=== PATIENT | male | born 1950 | race Hispanic/Latino ===

== ENCOUNTER → 2021-12-08 | Outpatient (CLI) | payer MEDICARE ==
[~2021-12-08] MED LIST: GADOTERATE MEGLUMINE 10 MMOL/20 ML VIAL IV ONE
== END | disposition home or self-care (01) ==
LOC: RAH 08:56
PROVIDERS: ATTEND Internal Medicine Gastroenterology
DX: R93.2 Abnormal findings on diagnostic imaging of liver and biliary tract (principal); B18.2 Chronic viral hepatitis C; R77.2 Abnormality of alphafetoprotein
CPT/HCPCS: 74183; A9575

== ENCOUNTER 2022-06-15 20:29 | Emergency (ER) | payer MEDICARE ==
[2022-06-15] MEDS ORDERED: TETANUS/DIPHTHERIA TOXOID [ADULT] 0.5 ML VIAL IM ONE (21:30)
[2022-06-15] MEDS ORDERED: LIDOCAINE HCL 1% 20 ML VIAL INJ SCH (22:00)
[2022-06-15 22:58] VITALS: BP 131/72
== END 2022-06-15 23:01 | disposition home or self-care (01) ==
LOC: EDH 20:29
DX: S01.81XA Laceration without foreign body of other part of head, initial encounter (principal); J44.9 Chronic obstructive pulmonary disease, unspecified; W18.39XA Other fall on same level, initial encounter; Y93.01 Activity, walking, marching and hiking; Y92.89 Other specified places as the place of occurrence of the external cause; Y99.8 Other external cause status
CPT/HCPCS: 12013; 70450; 72125; 82948; 90471; 90714